=== PATIENT | male | born 1970 ===

== ENCOUNTER 2016-08-02 10:21 | Day surgery (SDC) | payer OTHER ==
[2016-08-02] MEDS ORDERED: BUPIVACAINE/EPI 0.5% 30 ML SDV ONE (10:22)
[2016-08-02] MEDS ORDERED: cefOXitin SODIUM 1 GM in D5W 50 ML IV ONE (10:30)
[2016-08-02] MEDS ORDERED: LIDOCAINE 1% 5 ML SDV ONE (11:00)
[2016-08-02] MEDS ORDERED: LIDOCAINE 2% 5 ML SDV ONE (11:39)
[2016-08-02] MEDS ORDERED: PROPOFOL/EMULSION 500 MG/50 ML BOTTLE IV ONE (11:39)
[2016-08-02] MEDS ORDERED: DEXAMETHASONE 4 MG/ML VIAL ONE (11:39)
[2016-08-02] MEDS ORDERED: fentaNYL 100 MCG/2 ML INJ ONE (11:40)
[2016-08-02] MEDS ORDERED: ONDANSETRON 4 MG/2 ML VIAL ONE (12:29)
[2016-08-02] MEDS ORDERED: KETOROLAC 30 MG/1 ML SDV ONE (12:34)
--- NOTE | 2016-08-02 13:45 | GOP ---
DATE OF OPERATION: 08/02/2016 SURGEON: Jeff Rico MD PREOPERATIVE DIAGNOSIS: Prolapsing, thrombosed internal hemorrhoid. POSTOPERATIVE DIAGNOSIS: Same PROCEDURE PERFORMED: Exam under anesthesia with hemorrhoidectomy. FINDINGS: Patient was found to have a large thrombosed, prolapsing hemorrhoid at the 5 o'clock position, but no other significant hemorhoids. DESCRIPTION OF PROCEDURE: Patient was taken to the operating room where he received satisfactory general endotracheal anesthesia by Dr. Brown. He was placed in lithotomy position, prepped and draped in usual sterile fashion. The anus was infiltrated with 0.5% Marcaine and dilated to 3 fingerbreadths. The remainder of the anal verge was devoid of significant hemorrhoids, but at the 5 o'clock position there was a [id number], prolapsing internal and external hemorrhoid which was thrombosed. This was grasped with Allis clamp. An elliptical skin and mucosal incision was made, and it was dissected up off the internal sphincter muscle, and the entire mass was excised. Hemostasis was assured, and the mucosa and skin were approximated with a running 3-0 Vicryl suture. The wound was further infiltrated with 0.5% Marcaine, and then dressed. He tolerated the procedure well, was taken to the recovery room in good condition. COMPLICATIONS: None. /[id number]/MODL MTDD
== END 2016-08-02 14:40 | disposition home or self-care (01) ==
LOC: FSGY 10:21
PROVIDERS: ATTEND Surgery
PROC: 06BY0ZC Excision of Hemorrhoidal Plexus, Open Approach (ICD-10-PCS; principal; 2016-08-02 11:45)
DX: K64.5 Perianal venous thrombosis (principal)
CPT/HCPCS: J0697; J1100; J1885; J2405; J2704; J3010